=== PATIENT | male | born 1990 | race Caucasian/White ===

== ENCOUNTER 2018-10-15 04:56 | Emergency (ER) | payer OTHER ==
[2018-10-15 05:05] VITALS: BP 150/94; PULSE 69; RESP 20; TEMP 98.3
[2018-10-15] MEDS ORDERED: LIDOCAINE 1% INJ 10MG/ML (20 ML MDV) SQ ONE (05:12)
[2018-10-15] MEDS ORDERED: BUPIVACAINE (PF) 0.5% 30 ML VIAL SQ STA (05:12)
--- NOTE | 2018-10-15 05:13 | ED ---
ENT HPI - General Chief complaint: Dental/Oral Stated complaint: Tooth ache Time Seen by Provider: 10/15/18 05:12 Source: patient Mode of arrival: ambulatory Limitations: no limitations - History of Present Illness Initial comments: Patient is a pleasant 28-year-old male presents the emergency department for evaluation of tooth pain. Patient reports he's had no dental caries and tooth fracture for some time and is supposed to see an oral surgeon for tooth extraction. Patient reports that over the past 48 hours she's had worsening pain in his right lower jaw. Patient reports he's been taking Tylenol and using Orajel but still has discomfort. Patient states he hasn't been able to sleep all night due to the discomfort became the ER for further management. - Related Data Previous Rx's Medication Instructions Recorded Ibuprofen [Motrin] 800 mg PO TID #30 tab 10/15/18 Allergies Allergy/AdvReac Type Severity Reaction Status Date / Time Penicillins Allergy Rash/Hives Verified 10/15/18 05:05 Review of Systems ROS Statement: Those systems with pertinent positive or pertinent negative responses have been documented in the HPI. ROS Other: All systems not noted in ROS Statement are negative. Past Medical History Past Medical History: No Reported History History of Any Multi-Drug Resistant Organisms: None Reported Past Surgical History: No Surgical Hx Reported Past Psychological History: No Psychological Hx Reported Smoking Status: Current every day smoker Past Alcohol Use History: Occasional Past Drug Use History: None Reported General Exam - General Exam Comments Initial Comments: Physical Exam GENERAL: Patient is well-developed and well-nourished. Patient is nontoxic and well- hydrated and is in no distress. HENT: Normocephalic, Atraumatic. Very poor dentition with multiple dental caries, Tooth #30 with a very large cavity, no surrounding erythema or signs of infection EYES: PERRL, EOMI PULMONARY: Unlabored respirations. CARDIOVASCULAR: RRR ABDOMEN: Nondistended SKIN: Skin is clear with no lesions or rashes and otherwise unremarkable. : Deferred NEUROLOGIC: Patient is alert and oriented x3. Moving all extremities spontaneously MUSCULOSKELETAL: Normal extremities with adequate strength and full range of motion. No lower extremity swelling or edema. No calf tenderness. PSYCHIATRIC: Normal psychiatric evaluation. Limitations: no limitations Limitations: no limitations Course Vital Signs 10/15/18 05:01 Temperature 98.3 F Pulse Rate 69 Respiratory 20 Rate Blood Pressure 150/94 O2 Sat by Pulse 99 Oximetry Medical Decision Making - Medical Decision Making The patient was seen and evaluated history was obtained from patient Risks and benefits of a dental block were discussed with the patient. Patient like to proceed with a dental block A posterior superior alveolar nerve block was performed. Patient reported good analgesia and was much more comfortable comfortable with plan for discharge home. to follow up with dentist and oral surgeon for further management and plan for tooth extraction. Disposition Clinical Impression: Dental caries Disposition: HOME SELF-CARE Condition: Stable Instructions (If sedation given, give patient instructions): Dental Caries (ED), Toothache (ED) Prescriptions: Ibuprofen [Motrin] 800 mg PO TID #30 tab Is patient prescribed a controlled substance at d/c from ED?: No Referrals: Juancho Chapa MD [Primary Care Provider] - 1-2 days
[2018-10-15] MEDS ORDERED: KETOROLAC 30 MG/ML 1 ML VIAL IM STA (05:23)
== END 2018-10-15 06:16 | disposition home or self-care (01) ==
LOC: EC 04:56
DX: K02.9 Dental caries, unspecified (principal); F17.200 Nicotine dependence, unspecified, uncomplicated; Z88.0 Allergy status to penicillin
CPT/HCPCS: 99282; 64450; 96372; J2001; J1885